=== PATIENT | male | born 1950 | race Caucasian/White ===

== ENCOUNTER → 2019-09-15 12:25 | Outpatient (CLI) | payer MEDICARE, BC ==
[2016-01-29 11:27] VITALS: BMI 28.4
[~2019-09-15 12:25] MED LIST: BAYER CHEWABLE81 MG PO; GEMFIBROZIL600 MG PO; HCTZ25 MG PO
== END | disposition home or self-care (01) ==
LOC: D.MRI 12:25
PROVIDERS: ATTEND Family Medicine
DX: I61.0 Nontraumatic intracerebral hemorrhage in hemisphere, subcortical (principal); I61.9 Nontraumatic intracerebral hemorrhage, unspecified